=== PATIENT | male | born 1935 | race Caucasian/White ===

== ENCOUNTER 2017-05-09 10:00 | Inpatient (IN) | payer MEDICARE, OTHER ==
[~2017-05-09 10:00] MED LIST: ACETAMINOPHEN 1,000 MG/100 ML BTL IV ONE; CELECOXIB 100 MG CAPSULE PO ONE; FAMOTIDINE 20MG TABLET PO ONE; MECLIZINE 25 MG TABLET PO ONE; METOCLOPRAMIDE 10 MG TABLET PO ONE; VANCOMYCIN HCL 1,000 MG in 0.9 % SODIUM CHLORIDE 250ML 250 ML IVPB ONE
[2017-05-30] MEDS ORDERED: VANCOMYCIN HCL 1,000 MG in DEXTROSE 5 % IN WATER 250 ML IVPB ONE ×2 (06:00)
[2017-05-30] MEDS ORDERED: METOCLOPRAMIDE 10 MG TABLET PO ONE (06:00)
[2017-05-30] MEDS ORDERED: MECLIZINE 25 MG TABLET PO ONE (06:00)
[2017-05-30] MEDS ORDERED: FAMOTIDINE 20MG TABLET PO ONE (06:00)
[2017-05-30] MEDS ORDERED: ACETAMINOPHEN 1,000 MG/100 ML BTL IV ONE (06:00)
[2017-05-30] MEDS ORDERED: CELECOXIB 100 MG CAPSULE PO ONE (06:00)
[2017-05-30 08:43] LABS: ABO GROUP A; ANTIBODY SCREEN NEGATIVE (NEGATIVE); RH TYPE POSITIVE
[2017-05-30] MEDS ORDERED: BISACODYL 10 MG SUPP RC PRN (10:17)
[2017-05-30] MEDS ORDERED: ONDANSETRON HCL IV 4 MG/2 ML VIAL IVP PRN (10:17)
[2017-05-30] MEDS ORDERED: AL HYDROX/MAG HYDROX 30ML UD PO PRN (10:17)
[2017-05-30] MEDS ORDERED: HYDROMORPHONE HCL 1 MG/ML SYRINGE IM PRN (10:17)
[2017-05-30] MEDS ORDERED: HYDROMORPHONE HCL 2 MG/ML VIAL IM PRN (10:17)
[2017-05-30] MEDS ORDERED: HYDROCODONE/APAP 7.5/325MG TABLET PO PRN ×2 (10:17)
[2017-05-30] MEDS ORDERED: KETOROLAC 30 MG/ML VIAL IVP PRN ×2 (10:17)
[2017-05-30] MEDS ORDERED: DIPHENHYDRAMINE HCL 25 MG CAPSULE PO PRN (10:17)
[2017-05-30] MEDS ORDERED: TRAMADOL HCL 50 MG TABLET PO PRN (10:17)
[2017-05-30] MEDS ORDERED: HYDROCODONE/APAP 5/325MG TABLET PO PRN (10:17)
[2017-05-30] MEDS ORDERED: ZOLPIDEM TARTRATE 5 MG TABLET PO PRN (10:17)
[2017-05-30] MEDS ORDERED: MAGNESIUM HYDROXIDE 30 ML UDC PO PRN (10:17)
[2017-05-30] MEDS ORDERED: ACETAMINOPHEN W/ CODEINE 300MG/60MG TABLET PO PRN ×2 (10:17)
[2017-05-30] MEDS ORDERED: METOCLOPRAMIDE HCL 10 MG/2 ML VIAL IVP PRN (10:17)
[2017-05-30] MEDS ORDERED: MORPHINE SULFATE 5 MG/ML PFS IVP PRN ×4 (10:17)
[2017-05-30] MEDS ORDERED: ACETAMINOPHEN 325 MG TAB PO PRN (10:17)
[2017-05-30] MEDS ORDERED: PROMETHAZINE HCL 12.5 MG in 0.9 % SODIUM CHLORIDE 100ML 50 ML IVPB PRN (10:17)
[2017-05-30] MEDS ORDERED: NALOXONE 0.4 MG/1 ML VIAL IVP PRN (10:17)
[2017-05-30] MEDS ORDERED: ACETAMINOPHEN W/ CODEINE 300MG/30MG TABLET PO PRN ×2 (10:17)
[2017-05-30] MEDS ORDERED: DEXTROSE 5 % AND 0.9 % NACL 1,000 ML IV PRN (13:30)
[2017-05-30] MEDS ORDERED: VANCOMYCIN HCL 1 GM VIAL IVPB ONE (14:39)
[2017-05-30] MEDS ORDERED: BUPIVACAINE 0.75% W/EPI MPF 30ML VIAL IVP ONE (14:39)
[2017-05-30] MEDS ORDERED: TRANEXAMIC ACID 1,000 MG/10 ML ML IV ONE (14:39)
--- NOTE | 2017-05-30 15:39 | Rehab Evaluation ---
Patient Information - Patient Information Diagnosis: Left Knee Arthrosis Ordered Treatment: PT Evaluate and Treat Status: Initial Evaluation Surgery: Yes (L TKA) Date of Surgery: 05/30/17 History: Detail (Pt. reports hitsory of knee pain and difficulty ambulating secondary to arthritis.) Past Med/Fabi Hx Detail: Detail (Pt. reports no related orthopedic surgeries.) Past Medical/Surgical Hx: PAST MEDICAL/SURGICAL HISTORY Past Surgical History appy tonsils left shoulder sx left knee scope c scopes PMH - Respiratory Hx Respiratory Disorders No Comment: sinus drainage PMH - Cardiovascular Hx Cardiovascular Disorders Yes Hx Hypertension Yes Hx Hypotension Yes: orthostatic Hx Irregular Heartbeat Yes: bradycardia from beta blockers resolved now Exercise Tolerance Good Comment: hyperlipidemia PMH - Neuro Hx Neurological Disorders Yes Hx Dizziness Yes: with position changes PMH - GI Hx Gastrointestinal Disorders Yes Hx Gastroesophageal Reflux Yes: not a problem anymore PMH - Hx Genitourinary Disorders No PMH - Endocrine Hx Endocrine Disorders Yes Hx Diabetes Yes: dx'd 5 - 6 yrs ago Hx of NIDDM Yes Comment: A1C 6.0 FBS under 100 PMH - Musculoskeletal Hx Musculoskeletal Disorders Yes Hx Arthritis Yes Hx Back Injury Yes: years ago PMH - Psych Hx Psychiatric Problems No PMH - Hematology/Oncology Hx Hematology/Oncology Yes Disorders Hx Bruising Yes: bruises easily Hx Cancer Yes: skin maybe Premorbid Status: Detail (Slowly progressive worsening of sx.) Social History: Detail ([place] with elevator leading to his floor. Pt. has a front wheeled walker and single point cane. Pt. has a shower bench and rail to grab. Pt. has a raised toilet seat. Pt. is to have [facility] rehab and transition to OP PT.) Precautions: [place], Fall - Time With Patient Total Time Spent With Patient (Min): 30 Treatment Procedures: Detail (Physical Therapy Initial Evaluation Completed. Pt. was left supine with call light available, cryo L knee, and nursing was notified of pt.'s status.) Subjective Information - Subjective Information Per Patient (Pt. verbalized 0/10 pain reports and that he had minimal numbness at his feet, however, he was intact regarding proprioceptive awareness, kinesthetic awareness, and could differentiate all toes palpated with eyes closed. Pt. denied nausea, SOB, and dizziness.) Objective Data - Pain Pain Present: No - Mental Status Patient Orientation: Oriented x3 - Visual Perception Appears within normal limits for therapeutic activities - ROM Within normal limits (WFL all planes of movement for BUE, RLE, and knee flexion was actively taken to ~45 degrees.) - Strength/Tone Within normal limits (5/5 gross break testing BLE.) - Coordination Appears within normal limits for therapeutic activities - Bed Mobility Independent - Transfers Independent - Balance Balance Sitting: Good (Pt. maintained midline positioning for 3 minutes while seated.) Balance Standing: Good (Pt. maintained midline positioning while standing for 3 minutes.) - Sensation Intact - Gait Detail (Not assessed due to pt.'s reports of not having full sensation at his LEs.) - ADL's/IADL's Detail (Pt. was not assessed for ADLs.) - Special Tests Yes (Negative Homans B) Therapy Assessment - Therapy Assessment Detail (Pt. was independent with bed mobility and transfers, he verbalized understanding of precations, demonstrated good understanding of exercises, and had no complaints of pain or discomfort throughout session. Pt. did verbalize not having full sensation at his BLEs and was not assessed for gait due to his verbal reports. He will be appropriate for D/C from inpatient PT once assessed for gait.) Patient Education - Patient Education Teaching Topic: Disease Process, Precautions, Risk Factors Response: Return Demonstration Teaching Method: Discussion, Demonstration Teaching Recipient: Patient Barriers To Learning: None Problem List - Problem List Physical Therapy Problem List: Detail (1) Inability to be assessed for gait.) Goals - Goals Physical Therapy Goals: 1) Pt. will be independent with ambulation over household distances with or without AD. 2) Pt. will verbalize understanding of walker use with gait and avoid twisting his LE when turning. Prognosis - Prognosis Good (Pt. is expected to complete gait assessment and transition to home environment.) Plan - Plan Physical Therapy Plan: Pt. will be seen 1-2x per day for inpatient PT to assess ambulation and use of AD.
--- NOTE | 2017-05-30 15:44 | Rehab Evaluation ---
Patient Information - Patient Information Diagnosis: L total knee arthroplasty Ordered Treatment: OT Evaluate and Treat Status: Initial Evaluation Surgery: Yes Date of Surgery: 05/30/17 Past Medical/Surgical Hx: PAST MEDICAL/SURGICAL HISTORY Past Surgical History appy tonsils left shoulder sx left knee scope c scopes PMH - Respiratory Hx Respiratory Disorders No Comment: sinus drainage PMH - Cardiovascular Hx Cardiovascular Disorders Yes Hx Hypertension Yes Hx Hypotension Yes: orthostatic Hx Irregular Heartbeat Yes: bradycardia from beta blockers resolved now Exercise Tolerance Good Comment: hyperlipidemia PMH - Neuro Hx Neurological Disorders Yes Hx Dizziness Yes: with position changes PMH - GI Hx Gastrointestinal Disorders Yes Hx Gastroesophageal Reflux Yes: not a problem anymore PMH - Hx Genitourinary Disorders No PMH - Endocrine Hx Endocrine Disorders Yes Hx Diabetes Yes: dx'd 5 - 6 yrs ago Hx of NIDDM Yes Comment: A1C 6.0 FBS under 100 PMH - Musculoskeletal Hx Musculoskeletal Disorders Yes Hx Arthritis Yes Hx Back Injury Yes: years ago PMH - Psych Hx Psychiatric Problems No PMH - Hematology/Oncology Hx Hematology/Oncology Yes Disorders Hx Bruising Yes: bruises easily Hx Cancer Yes: skin maybe Premorbid Status: Detail (Pt. was independent with all self-care skills, basic meal prep, and light housework. Pt. has caregiver assistance available if needed , as well as meals. Pt. has hx of L shd orthopedic sx approx. 2 years ago with minor residual pain during some movements, but pt. reports it does not effect level of function.) Social History: Detail (Pt. lives in an [facility]. apartment at [facility]. His apt. is on the 3rd floor, with elevator access. His bathroom is equipped with a raised toilet seat, walk-in shower (4" threshold), built in shower seat, and grab bars. Caregiver assistance is available 24/ if needed, as well as meals. Pt's apartment also has emergency pull cords. Pt. has a first mate tool and 2WW.) Precautions: [place], Fall, Other (WBAT LLE) - Time With Patient Total Time Spent With Patient (Min): 35 Treatment Procedures: Detail (Pt. was left supine in bed with call light and bedside tray within reach. Please see ADL section for tx details.) Subjective Information - Subjective Information Per Patient Objective Data - Pain Pain Present: No (Pt stated no pain and no nausea) - Mental Status Patient Orientation: Oriented x3 - Visual Perception Appears within normal limits for therapeutic activities - ROM Within normal limits (BUE) - Strength/Tone Within normal limits (BUE 4+/5 MMT) - Coordination Appears within normal limits for therapeutic activities - Bed Mobility Independent - Transfers Needs Assist (CGA sit<>stand from EOB to 2WW d/t still experiencing BLE numbness and weakness.) - Balance Balance Sitting: Good Balance Standing: Fair - Sensation Deficit (Pt. reports BLE numbness ankles to knees, but able to feel 2 pt discrimination on toes and feet. BUE lt touch intact fingertips. Pt. reports occasional numbness in UE if in 1 position too long.) - ADL's/IADL's Detail (ADL's and functional mobility not assessed at this time d/t post surgical BLE numbness. Educ. was provided on use of a first mate and adaptive dressing techniques. Pt. verbalized understanding. Pt. has some concerns about donning compression stockings, but stated he can ask the caregiver aides for assistance if needed.) Therapy Assessment - Therapy Assessment Detail (In-pt. OT services not recommended at this time. Pt. has a well- equipped home environment, and 30/12 caregiver assistance available if needed. Pt. was mobile and verbalized understanding of dressing techniques and use of first mate.) Patient Education - Patient Education Teaching Topic: Equipment Use Response: Verbalize Understanding Teaching Method: Discussion Teaching Recipient: Patient Barriers To Learning: None Prognosis - Prognosis Good Plan - Plan Occupational Therapy Plan: D/C from in pt. OT services at this time. Educ. was provided to call if Q's arise when pt. arrives home.
[2017-05-30] MEDS ORDERED: PHENYLEPHRINE HCL 10 MG/ML VIAL IVP ONE (15:51)
[2017-05-30] MEDS ORDERED: HYDROMORPHONE HCL 2 MG/ML VIAL IV ONE (15:51)
[2017-05-30] MEDS ORDERED: FENTANYL PF 100MCG/2ML VIAL IV ONE (15:51)
[2017-05-30] MEDS ORDERED: MIDAZOLAM HCL 2MG/2ML VIAL IV ONE (15:51)
[2017-05-30] MEDS: HYDROCODONE/APAP 5/325MG TABLET PO PRN (19:02)
[2017-05-30] MEDS: VANCOMYCIN HCL 1,000 MG in DEXTROSE 5 % IN WATER 250 ML IVPB SCH ×2 (21:10)
[2017-05-30] MEDS ORDERED: METFORMIN 500 MG TABLET PO SCH (22:00)
[2017-05-30] MEDS ORDERED: ATORVASTATIN 20 MG TABLET PO SCH (22:00)
[2017-05-30] MEDS ORDERED: GEMFIBROZIL 600 MG TABLET PO SCH (22:00)
[2017-05-30] MEDS: FERROUS SULFATE 325 MG TAB PO SCH (22:51)
[2017-05-30] MEDS: DOCUSATE SODIUM 100 MG CAPSULE PO SCH (22:51)
[2017-05-31] MEDS: HYDROCODONE/APAP 5/325MG TABLET PO PRN (00:35)
[2017-05-31] MEDS: TRAMADOL HCL 50 MG TABLET PO PRN ×2 (02:19→07:02)
[2017-05-31 06:36] LABS: HEMATOCRIT 34.1 % (42.0-52.0)
--- NOTE | 2017-05-31 07:54 | Operative Note ---
DATE OF SURGERY: 05/30/2017. PREOPERATIVE DIAGNOSIS: Left knee arthrosis. POSTOPERATIVE DIAGNOSIS: Left knee arthrosis. OPERATION: Left total knee arthroplasty. SURGEON: Rafael Grey M.D. ANESTHESIA: Spinal, Glenny Romo CRNA. COMPLICATIONS: None. ESTIMATED BLOOD LOSS: Minimal. TOURNIQUET TIME: 60 minutes. OPERATIVE FINDINGS: [id number] medial compartment arthrosis. COMPONENTS PLACED: A total of 2.0 gm vancomycin cement, Sw[employer] Journey II total knee arthroplasty system, size 7 cobalt chrome femoral component, a size 8 tibial baseplate, a 9.0 mm thick tibial poly insert, 35 mm cemented patellar component, and 2.0 gm of vancomycin and cement. INDICATIONS: This is an 82-year-old male who has had persistent pain and dysfunction in his knee for several years. He has failed nonoperative treatment. X-rays revealed [id number] medial compartment arthrosis, and he was scheduled for the procedure above. I explained to him all risks and benefits of surgery in detail for the diagnosis and procedures including but not limited to infection, nerve injury, vessel injury, persistent pain, stiffness, numbness and tingling in his knee, periprosthetic fracture, need for resection arthroplasty should the components become infected or loosened, blood clot and the need for anticoagulation to prevent blood clots, and the risks associated with medications. All of his questions were answered. The course was outlined and he agreed to proceed. PROCEDURE: The patient brought to the operating room. He was placed in the supine position and was prepared for surgery. Spinal anesthesia was induced. His left lower extremity was prepped and draped in sterile fashion. The left knee was prepped again with ChloraPrep and draped. Intraoperative time out was performed. Next, the knee was injected with 0.5% Marcaine with epinephrine. The leg was exsanguinated with Esmarch and the knee was flexed. The tourniquet was inflated to 250 mm Hg pressure. Next, the skin and subcutaneous tissues were dissected down. Incised the capsule medially around the medial border of the patella to the tibial tubercle. Incised the vastus medialis in line with its fibers in a mid vastus approach. I everted the patella and partially resected the retropatellar fat. Elevated the capsule subperiosteally and medially. He had [id number] medial compartment arthrosis. Next I drilled an intracondylar drill hole and inserted intramedullary guide becka. I used the 60- degree cutting block to line up the distal femoral condyle and pinned it in place in the +2.0 mm position. Next I cut the distal femoral condyle. I next inserted the sizing jig on the distal femoral condyle and sized it to be right on size 7. Through the previously-placed pin holes I placed the 5 in 1 cutting jig. We dialed in the anterior cut so it would come out flush without notching. We cut that and it was a good flush cut. We then cut the remaining chamfer cuts in the usual fashion. Next I placed a size 7 trial femoral component, and it was seated nicely. As soon as it was flush, I centered it and pinned it. I inserted the femoral resection collet. I reamed out with a box osteotome the cruciate bone block. Next, attention was turned to the tibia. Placed the extra-alignment jig in the tibia, seated the spikes in the intertubercular groove two fingerbreadths distally off the anterior tibial cortex. Referenced for a 7.0 mm cut off the higher lateral plateau. We pinned the cutting jig provisionally in place with two anterior-posterior pins. We then rechecked alignment of the cutting jig using a drop becka, centering it on the tibial anatomic access. We then cross pinned it to complete its fixation and then cut the tibia. Next, we removed osteophytes off the posterior femoral condyles and checked the flexion and extension gaps. There were symmetric flexion and extension gaps with the 9.0 mm tibial poly insert. Overall alignment in flexion and extension was anatomic valgus orientation with alignment rods sitting on the hip joint and ankle joint. Next we took the knee in flexion and sized the tibial baseplate to be size 8. We seated the tibial base plate in rotation and extension using the alignment becka sitting on the hip joint and ankle joint. Marked electrocautery sims on the tibial cortex off the laser sims of the tibial baseplate. Next I measured the patella and it was 29 mm. I set the cutting jig at 20 mm to allow for a 9.0 mm thick poly insert. Cut the patella and chamfered off the lateral patellar facet. I medialized as much as possible, and sized it to a 35. I drilled three peg holes. Next, I placed the trial patella component, and it fit nicely. I then remeasured the patella width, and it was right on 20. Next I checked the knee range of motion. The patella tracked nicely hands free. Again there were symmetric flexion and extension gaps. Next I mixed cement. I took the knee to flexion. I seated the tibial baseplate off the previously placed electrocautery sims. I pinned it in place and drilled out and keel punched the keel hole. I placed a bone plug in the femoral canal hole. I placed the drill bit in the tibia hole and exposed the proximal tibia. I irrigated copiously all bony surfaces. I precoated both surfaces and then impacted down down the tibial component and then the femoral component. I placed the trial poly liner then clamped down the patellar component. I held the knee in extension until the cement hardened. I then removed the excess cement. Once the cement hardened, I distracted the knee with a bone hook and sponge. We injected the knee capsule peripherally deep and superficial with 0.5% Marcaine with epinephrine, 2.0 gm tranexamic acid, and Exparel mixture, deep capsule medial and lateral periosteum and vastus medialis subcutaneous. Next, we impacted down the real tibial poly insert and verified it was interlocked medially and laterally. I found our range of motion was still the same. We then irrigated and closed the vastus and capsule with running #2 Quill. I irrigated again and closed the skin deep with 2-0 Vicryl. The skin edges were approximated with a zip line, and a sterile dressing was applied. The patient tolerated the procedure well. No intraoperative complications. Sponge, needle, and blade counts correct. Recovery room stable, neurovascularly intact. He will be discharged to the floor and will be discharged home tomorrow. cc: Kavon Collins M.D. JOB NUMBER: [id number] MTDD
[2017-05-31] MEDS: VANCOMYCIN HCL 1,000 MG in DEXTROSE 5 % IN WATER 250 ML IVPB SCH ×2 (08:04)
[2017-05-31] MEDS: DOCUSATE SODIUM 100 MG CAPSULE PO SCH (09:26)
[2017-05-31] MEDS: FERROUS SULFATE 325 MG TAB PO SCH (09:26)
[2017-05-31] MEDS ORDERED: LISINOPRIL 10 MG TABLET PO SCH (10:00)
[2017-05-31] MEDS ORDERED: RIVAROXABAN 10 MG TABLET PO SCH (10:00)
[2017-05-31] MEDS ORDERED: CELECOXIB 100 MG CAPSULE PO SCH (10:00)
--- NOTE | 2017-05-31 10:54 | Physical Therapy Tx Note ---
Physical Therapy Tx Note - Treatment Note Tolerated: Good (Patient feeling quite good this am, had a decent night's sleep. Definitely wants to go home today. Patient able to move from supine to sit independently after removal of cryocuff and compressive pads on legs. Patient able to move sit to stand independently then used walker to ambulate 100 feet in bettencourt, ambulate down three steps with folded walker and rail safely and with proper technique then pivoted around and walked back up three steps with same use of rail and folded walker. Able to tolerate some exercises but knee quite painful yet with any flexion.) Physical Therapy Tx Note: Detail (As noted above, patient ambulated in bettencourt about 100 feet. Able to negotiate steps easily with rail and FWW. WBAT is quite good and about 50% or so. Performed exercises seated and supine for knee: quad, glut and ham sets, heel slides and SLR, ankle pumps and reminded to continue today as able to tolerate until sees home therapist.) Physical Therapy Problem List: Detail (1) Inability to be assessed for gait day of surgery. Day after surgery, able to ambulate normally with FWW and WBAT.) Physical Therapy Goals: 1) Pt. will be independent with ambulation over household distances with or without AD. 2) Pt. will verbalize understanding of walker use with gait and avoid twisting his LE when turning. Prognosis: Good (Patient is able to ambulate fairly normally and household distances now, negoitiate stairs with proper assist of walker and rail and able to perform exercises normally. Bed mobility independent. Patient is ready for discharge from PT as has passed all skills necessary for discharge.) Physical Therapy Plan: Pt. will be seen 1-2x per day for inpatient PT to assess ambulation and use of AD.
== END 2017-05-31 13:55 | disposition home health service (06) | DRG 470 ==
LOC: UNDOADMIN 05-30 07:07 → MEDSURG 05-30 07:07
PROVIDERS: ADMIT Orthopaedic Surgery; ATTEND Orthopaedic Surgery
PROC: 0SRD069 Replacement of Left Knee Joint with Oxidized Zirconium on Polyethylene Synthetic Substitute, Cemented, Open Approach (ICD-10-PCS; principal; 2017-05-30 10:00)
DX: M17.12 Unilateral primary osteoarthritis, left knee (principal); E78.00 Pure hypercholesterolemia, unspecified; I10 Essential (primary) hypertension; E11.9 Type 2 diabetes mellitus without complications; Z79.84 Long term (current) use of oral hypoglycemic drugs
CPT/HCPCS: 36416; 82948; 85014; 85018; 86850; 86900; 86901; 94761; 97110; 97116; 97165; J1885; J2370; J3490; J7042; J7060

== ENCOUNTER 2018-06-22 05:42 | Day surgery (SDC) | payer MEDICARE, OTHER ==
[2018-06-22] MEDS ORDERED: VANCOMYCIN HCL 1 GM VIAL IVPB ONE (05:43)
[2018-06-22] MEDS ORDERED: BUPIVACAINE 0.5% W/EPI MPF 30 ML VIAL IVP ONE (05:43)
[2018-06-22] MEDS ORDERED: MIDAZOLAM HCL 2MG/2ML VIAL IV ONE (05:43)
[2018-06-22] MEDS ORDERED: LIDOCAINE 2% MDV (20MG/ML) 20ML VIAL IV ONE (05:43)
[2018-06-22] MEDS ORDERED: DEXAMETHASONE 4 MG/ML 1ML VIAL IVP ONE (05:43)
[2018-06-22] MEDS ORDERED: BUPIVACAINE LIPOSOME 266MG/20ML VIAL IV ONE (05:43)
[2018-06-22] MEDS ORDERED: TRANEXAMIC ACID 1,000 MG/10 ML ML IV ONE ×2 (05:43→10:36)
[2018-06-22] MEDS ORDERED: FENTANYL CITRATE/PF 50 MCG/ML VIAL IJ ONE (05:43)
[2018-06-22] MEDS ORDERED: ROPIVACAINE HCL (NAROPIN) /PF 5MG/ML 20ML VIAL IV ONE (05:43)
[2018-06-22] MEDS ORDERED: PROPOFOL 10 MG/ML VIAL IV ONE (05:43)
[2018-06-22] MEDS ORDERED: ACETAMINOPHEN 1,000 MG/100 ML BTL IV ONE (06:00)
[2018-06-22] MEDS ORDERED: CELECOXIB 100 MG CAPSULE PO ONE (06:00)
[2018-06-22] MEDS ORDERED: VANCOMYCIN HCL 1,000 MG in DEXTROSE 5 % IN WATER 250 ML IVPB ONE ×2 (06:00)
[2018-06-22] MEDS ORDERED: METOCLOPRAMIDE 10 MG TABLET PO ONE (06:00)
[2018-06-22] MEDS ORDERED: CEFAZOLIN 2 Gram 2 GM/50 ML BAG IVPB ONE (06:00)
[2018-06-22] MEDS ORDERED: FAMOTIDINE 20MG TABLET PO ONE (06:00)
[2018-06-22] MEDS ORDERED: MECLIZINE 25 MG TABLET PO ONE (06:00)
[2018-06-22] MEDS ORDERED: PROMETHAZINE HCL 12.5 MG in 0.9 % SODIUM CHLORIDE 100ML 50 ML IVPB PRN (08:23)
[2018-06-22] MEDS ORDERED: METOCLOPRAMIDE HCL 10 MG/2 ML VIAL IVP PRN (08:23)
[2018-06-22] MEDS ORDERED: ACETAMINOPHEN W/ CODEINE 300MG/30MG TABLET PO PRN ×2 (08:23)
[2018-06-22] MEDS ORDERED: HYDROMORPHONE HCL 2 MG/ML VIAL IM PRN ×2 (08:23)
[2018-06-22] MEDS ORDERED: ACETAMINOPHEN W/ CODEINE 300MG/60MG TABLET PO PRN ×2 (08:23)
[2018-06-22] MEDS ORDERED: MAGNESIUM HYDROXIDE 30 ML UDC PO PRN (08:23)
[2018-06-22] MEDS ORDERED: ONDANSETRON HCL IV 4 MG/2 ML VIAL IVP PRN (08:23)
[2018-06-22] MEDS ORDERED: DIPHENHYDRAMINE HCL 25 MG CAPSULE PO PRN (08:23)
[2018-06-22] MEDS ORDERED: ACETAMINOPHEN 325 MG TAB PO PRN (08:23)
[2018-06-22] MEDS ORDERED: TRAMADOL HCL 50 MG TABLET PO PRN ×2 (08:23)
[2018-06-22] MEDS ORDERED: NALOXONE 0.4 MG/1 ML VIAL IVP PRN (08:23)
[2018-06-22] MEDS ORDERED: BISACODYL 10 MG SUPP RC PRN (08:23)
[2018-06-22] MEDS ORDERED: AL HYDROX/MAG HYDROX 30ML UD PO PRN (08:23)
[2018-06-22] MEDS ORDERED: KETOROLAC 30 MG/ML VIAL IVP PRN ×2 (08:23)
[2018-06-22] MEDS ORDERED: ZOLPIDEM TARTRATE 5 MG TABLET PO PRN (08:23)
[2018-06-22] MEDS ORDERED: HYDROCODONE/APAP 5/325MG TABLET PO PRN ×2 (08:23)
[2018-06-22] MEDS ORDERED: HYDROCODONE/APAP 7.5/325MG TABLET PO PRN (08:23)
[2018-06-22] MEDS: HYDROCODONE/APAP 7.5/325MG TABLET PO PRN ×2 (11:13→22:20)
--- NOTE | 2018-06-22 13:40 | Rehab Evaluation ---
Patient Information - Patient Information Diagnosis: R knee OA Ordered Treatment: PT Evaluate and Treat Status: Initial Evaluation Surgery: Yes (TKA R) Date of Surgery: 06/22/18 Past Medical/Surgical Hx: PAST MEDICAL/SURGICAL HISTORY Past Surgical History appy tonsils left shoulder sx left knee scope c scopes; left total knee replacement 05/2017 PMH - Respiratory Hx Respiratory Disorders Yes Hx Asthma No Hx Bronchitis No Hx Chronic Obstructive Yes: cxr suggested copd Pulmonary Disease (COPD) Hx Dyspnea No Hx Pneumonia No Hx Pulmonary Embolism No Hx Sleep Apnea No Hx Tuberculosis No Hx of CPAP No Comment: sinus drainage PMH - Cardiovascular Hx Cardiovascular Disorders Yes Hx Abnormal EKG No Hx Cardiac Catheterization No Hx Chest Pain Yes: 3 weeks ago-awoke with chest pain & sweats - went to [facility]-"not heart related' Hx Congestive Heart Failure No Hx Deep Vein Thrombosis No Hx Edema No Hx Heart Attack No Hx Hypertension Yes Hx Hypotension Yes: orthostatic Hx Irregular Heartbeat Yes: bradycardia from beta blockers resolved now Hx Palpitations No Hx Pacemaker/Defibrillator No Hx Vascular Disease Yes: "MY FEET GET COLD" Exercise Tolerance Good Hx Transient Ischemic Attacks No (TIA) Comment: hyperlipidemia PMH - Neuro Hx Neurological Disorders Yes Hx Brain Tumor No Hx Cerebrovascular Accident No Hx Dementia No Hx Dizziness Yes: with position changes Hx Headaches No Hx Neuropathy No Hx Parkinson's Disease No Hx Seizures No Hx Speech Problem No Hx Syncope No Hx Transient Ischemic Attacks No (TIA) PMH - GI Hx Gastrointestinal Disorders Yes Hx Abdominal Pain No Hx Celiac Disease No Hx Crohn's Disease No Hx Diverticulitis No Hx Gastrointestinal Bleed No Hx Gastroesophageal Reflux Yes: ON PRILOSEC Hx Hepatitis/Jaundice No Hx Hiatal Hernia No Hx Irritable Bowel No Hx Liver Disease No Hx Nausea/Vomiting No Hx Obstructive Bowel No Hx Pancreatitis No Hx Rectal Bleeding No Hx Ulcer No Hx Weight Loss/Weight Gain Yes: LOSS FROM 185 TO 165 Comment: WT LOSS FROM DIETING PMH - Hx Genitourinary Disorders No Hx Bladder Problem No Hx Dialysis No Hx Kidney Stones No Hx Prostate Problems No Hx Renal Disease No Hx Urinary Tract Infection No PMH - Endocrine Hx Endocrine Disorders Yes Hx Diabetes Yes: dx'd 5 - 6 yrs ago Hx Thyroid Disease No Hx of NIDDM Yes: NO LONGER ON METFORMIN Comment: A1C 6.0 FBS under 100 PMH - Musculoskeletal Hx Musculoskeletal Disorders Yes Hx Arthritis Yes Hx Back Injury Yes: years ago Hx Fibromyalgia No Hx Gout No Hx Musculoskeletal Disease No Hx Osteoporosis No PMH - Psych Hx Psychiatric Problems No Hx Anxiety No Hx Behavior Problems No Hx Depression No Hx Emotional Abuse No Hx Sexual Abuse No Hx Suicide Attempt No PMH - Hematology/Oncology Hx Hematology/Oncology Yes Disorders Hx Anemia No Hx Blood Disorders No Hx Bruising Yes: bruises easily Hx Cancer Yes: skin maybe Hx Clotting Problems No Hx Sickle Cell Disease No Hx Unexplained Bleeding No Hx Blood Transfusion Reaction No Premorbid Status: Detail (The patient was independent with all mobility prior to surgery.) Social History: Detail (The patient lives in an apartment with an elevator. The patient's bathroom is equipped with a walk in shower with shower bench, grab bars and an elevated toilet with grab bars. The patient has a front wheeled walker and a standard cane.) Precautions: [place], Fall, Other (WBAT on the R LE) - Time With Patient Total Time Spent With Patient (Min): 30 Treatment Procedures: Detail (Initial evaluation) Subjective Information - Subjective Information Per Patient (The patient had complaints of level 3 R knee pain using 0-10 pain scale.) Objective Data - Mental Status Patient Orientation: Oriented x3 - Visual Perception Appears within normal limits for therapeutic activities - ROM Not within normal limits (The patient's R knee AROM was aprox. 85 degrees of flexion , 0 degrees of extension. All other AROM was WNL.) - Strength/Tone Not within normal limits (The patient's R LE strength was not tested secondary to s/p surgery however, was functional. The patient's LE strength generally was 4+ to 5/5.) - Bed Mobility Independent (The patient was independent with supine to and from sit transfer.) - Transfers Needs Assist (The patient was independent with sit to and from stand transfer with verbal cues to push up from and reach back for surface. The patient had one incident of LOB with minimal PA of 1 to correct when going from a standing to sitting position.) - Balance Balance Sitting: Good Balance Standing: Fair (The patient requires support of walker to balance s/p surgery.) - Sensation Intact - Gait Detail (The patient ambulated with front wheeled walker WBAT on the R LE a distance of 108 feet x 1 with assist of one to handle equipment only.) Therapy Assessment - Therapy Assessment Detail (The patient was independent with bed mobility and ambulation. The patient exhibited unsteadiness with supine to sit. The patient was independent with HEP. Will see the patient for one session to moniter safety with transfers. ) Patient Education - Patient Education Teaching Topic: Exercise/Activity (The patient was independent with TKA HEP including: heel slides, ankle pumps, quad sets, gluteal sets, hamstring sets and SLR.) Response: Return Demonstration Teaching Method: Demonstration, Handout Teaching Recipient: Patient Barriers To Learning: Age Related Problem List - Problem List Physical Therapy Problem List: Detail (Decreased R knee AROM and strength as to be expected following surgery.) Goals - Goals Physical Therapy Goals: The patient will acheive safe sit to stand transfer without verbal cues or LOB. Prognosis - Prognosis Good Plan - Plan Physical Therapy Plan: PT for one session to assess safety with transfers.
[2018-06-22] MEDS: VANCOMYCIN HCL 1,000 MG in DEXTROSE 5 % IN WATER 250 ML IVPB SCH ×2 (19:04)
[2018-06-22] MEDS: DEXTROSE 5 % AND 0.9 % NACL 1,000 ML IV PRN (19:05)
[2018-06-22 21:02] LABS: ABO GROUP A; ANTIBODY SCREEN NEGATIVE (NEGATIVE); RH TYPE POSITIVE
--- NOTE | 2018-06-22 21:05 | Operative Note ---
DATE OF SURGERY: 06/22/2018 PREOPERATIVE DIAGNOSES: RIGHT KNEE END-STAGE ARTHROSIS. POSTOPERATIVE DIAGNOSES: RIGHT KNEE END-STAGE ARTHROSIS. PROCEDURE: RIGHT TOTAL KNEE ARTHROPLASTY. SURGEON: ABISAI NORMAN M.D. ANESTHESIA: SPINAL, HOLLY CESPEDES CRNA. COMPLICATIONS: NONE. BLOOD LOSS: MINIMAL. TOURNIQUET TIME: ABOUT 60 MINUTES. OPERATIVE FINDINGS: [id number] medial compartment arthrosis. COMPONENTS PLACED: 2 gm Vancomycin, cement, [employer] Journey II Oxinium size 8 femoral component, size 8 tibial baseplate, an 9 mm thick tibial poly insert, and a 38 mm cemented patellar component. INDICATIONS FOR OPERATION: This is an 83-year-old male status post left knee arthroplasty done by myself and is now scheduled for the right. I explained the risks and benefits thoroughly in detail for diagnosis and procedures including but not limited to infection, nerve injury, vessel injury, persistent pain, stiffness, numbness and tingling in his knee, periprosthetic fracture, need for resection arthroplasty should the components become infected or loosened, blood clot, need for further procedures, anticoagulation to prevent blood clots and the risks associated with these medications and all of his questions were answered. The rehab and course were outlined and he agreed to proceed. PROCEDURE: The patient was brought to the O.R. and placed in the supine position for surgery. Spinal anesthesia induced and his right lower extremity and knee were prepped and draped in sterile fashion. The right knee was prepped again with ChloraPrep after it was draped. Intraoperative time-out was performed. Next, the leg was exsanguinated with an Esmarch. It was infiltrated with 0.5% Marcaine with Epinephrin. The skin and subcutaneous tissues were dissected down. I incised the capsule medially around the medial border of the patella to the tibial tubercle. I incised the vastus medialis in line with its fibers in a mid vastus approach. Partially resected the retropatellar fat pad, elevated the capsule subperiosteally medially and flexed the knee and retracted the patella laterally with curved Hohmann retractors and exposed the large distal femoral condyle. The medial femoral condyle was completely eroded of any cartilage. I drilled the intracondylar drill hole and inserted the intramedullary guide becka and 6-degree cutting block and aligned it off the distal femoral condyles and pinned in the zero position. We then moved it up to the +2 mm position, cross-pinned it and completely its fixation and cut the distal femur. Next we placed the sizing jig on the distal femur and sized the sizing jig to be right on size 8. Through the previously placed pin holes, we placed the 5-in- 1 cutting jig. We dialed in the anterior cut so it would come out flush without notching. We cut the anterior cut. It was a good cut. We then pinned it and cut the remaining chamfer cuts in the usual fashion. We placed the size 8 femoral component, centered it, pinned it, and removed osteophytes off the edges of the components. We inserted the resection collet and reamed out and box-osteotomed out the cruciate bone block. Attention was turned to the tibia now. We seated the external alignment jig with the spikes in the intertubercular groove two fingerbreadths distally and referenced for a 7 mm cut off the higher lateral plateau and then pinned that provisionally with two anterior and posterior pins. We then cut the tibia. Next, we removed osteophytes from the posterior femoral condyles, checked flexion and extension gaps. He basically had symmetric flexion and extension gaps with a 9 mm thick block insert. This allowed for 2 to 3 mm of varus/valgus laxity in flexion and extension. Overall alignment of cuts in extension with anatomic valgus orientation with the alignment becka centered on the hip joint and ankle joint. We took the knee in flexion, sized the tibial baseplate to be a size 8, replaced all trial components. Again, we set the rotation of the tibial baseplate in extension using the alignment becka centered on the hip joint and ankle joint and marked electrocautery sims on the tibial cortex off the laser sims on the tibial baseplate. Attention was turned to the patella. It was a very large patella. It measured to be 28 mm. We set the cutting jig at 19 mm to allow for a 9 mm thick insert. We cut the patella and remeasured. It was right on 19. We chamfered off the lateral patellar facet, sized it to be 38. We drilled three peg holes and placed the trial patellar component and did a trial range of motion and stability check and mixed cement. Again, we had symmetric flexion and extension gaps. Full extension and flexion to 150 degrees. Next, we took the knee in flexion and exposed the proximal tibia. We seated the tibial baseplate off the previously placed electrocautery sims, pinned it, and then drilled out and keel-punched the keel hole. Next, we placed a bone plug in the femoral canal hole. We placed the drill bit in the keel hole and irrigated copiously all bony surfaces with pulsatile lavage antibiotic solution. We changed gloves and brought in a clean sheet. We pre-coated both surfaces and impacted down the tibial component first and then the femoral component and clamped down the patella component and placed the trial tibial poly liner. We held the knee in extension until the cement hardened. Once the cement hardened, we took the knee back into flexion. We distracted the knee with bone hook and sponge, removed any excess cement off the edges of the components. We irrigated copiously and then we injected our pain-relieving mixture of 0.5% Marcaine with Epinephrine, 2 gm tranexamic acid, and Exparel mixture deep to superficial through the mediolateral capsule, mediolateral periosteum and working out superficially to the subcutaneous regions. Next, we inserted the real tibial poly insert and verified it was interlocked. Final range of motion revealed the same. Next, we closed the knee in slight flexion using a running #2 Quill suture in the capsule and vastus split. We irrigated again. We closed the skin deep with #2-0 Vicryl. Sterile dressing applied and CARLOS wrap. It will be changed to a PETE dressing prior to discharge tomorrow. cc: Dr. Kavon Collins JOB NUMBER: [id number] [employer] [facility]
[2018-06-22] MEDS ORDERED: ATORVASTATIN 20 MG TABLET PO SCH (22:00)
[2018-06-22] MEDS ORDERED: GEMFIBROZIL 600 MG TABLET PO SCH (22:00)
[2018-06-22] MEDS ORDERED: SYSTANE EYE OPTH SCH (22:00)
[2018-06-22] MEDS: DOCUSATE SODIUM 100 MG CAPSULE PO SCH (22:19)
[2018-06-22] MEDS: FERROUS SULFATE 325 MG TAB PO SCH (22:19)
[2018-06-23] MEDS: HYDROCODONE/APAP 7.5/325MG TABLET PO PRN ×2 (06:50→13:39)
[2018-06-23] MEDS: VANCOMYCIN HCL 1,000 MG in DEXTROSE 5 % IN WATER 250 ML IVPB SCH ×2 (06:52)
[2018-06-23 06:56] LABS: HEMATOCRIT 34.6 % (42.0-52.0)
[2018-06-23] MEDS ORDERED: PANTOPRAZOLE SODIUM 40 MG TABLET PO SCH (07:00)
[2018-06-23] MEDS: DEXTROSE 5 % AND 0.9 % NACL 1,000 ML IV PRN (08:31)
--- NOTE | 2018-06-23 08:35 | Rehab Evaluation ---
Patient Information - Patient Information Diagnosis: R knee OA Ordered Treatment: OT Evaluate and Treat Status: Initial Evaluation Surgery: Yes (TKA R) Date of Surgery: 06/22/18 Past Medical/Surgical Hx: PAST MEDICAL/SURGICAL HISTORY Past Surgical History appy tonsils left shoulder sx left knee scope c scopes; left total knee replacement 05/2017 PMH - Respiratory Hx Respiratory Disorders Yes Hx Asthma No Hx Bronchitis No Hx Chronic Obstructive Yes: cxr suggested copd Pulmonary Disease (COPD) Hx Dyspnea No Hx Pneumonia No Hx Pulmonary Embolism No Hx Sleep Apnea No Hx Tuberculosis No Hx of CPAP No Comment: sinus drainage PMH - Cardiovascular Hx Cardiovascular Disorders Yes Hx Abnormal EKG No Hx Cardiac Catheterization No Hx Chest Pain Yes: 3 weeks ago-awoke with chest pain & sweats - went to [facility]-"not heart related' Hx Congestive Heart Failure No Hx Deep Vein Thrombosis No Hx Edema No Hx Heart Attack No Hx Hypertension Yes Hx Hypotension Yes: orthostatic Hx Irregular Heartbeat Yes: bradycardia from beta blockers resolved now Hx Palpitations No Hx Pacemaker/Defibrillator No Hx Vascular Disease Yes: "MY FEET GET COLD" Exercise Tolerance Good Hx Transient Ischemic Attacks No (TIA) Comment: hyperlipidemia PMH - Neuro Hx Neurological Disorders Yes Hx Brain Tumor No Hx Cerebrovascular Accident No Hx Dementia No Hx Dizziness Yes: with position changes Hx Headaches No Hx Neuropathy No Hx Parkinson's Disease No Hx Seizures No Hx Speech Problem No Hx Syncope No Hx Transient Ischemic Attacks No (TIA) PMH - GI Hx Gastrointestinal Disorders Yes Hx Abdominal Pain No Hx Celiac Disease No Hx Crohn's Disease No Hx Diverticulitis No Hx Gastrointestinal Bleed No Hx Gastroesophageal Reflux Yes: ON PRILOSEC Hx Hepatitis/Jaundice No Hx Hiatal Hernia No Hx Irritable Bowel No Hx Liver Disease No Hx Nausea/Vomiting No Hx Obstructive Bowel No Hx Pancreatitis No Hx Rectal Bleeding No Hx Ulcer No Hx Weight Loss/Weight Gain Yes: LOSS FROM 185 TO 165 Comment: WT LOSS FROM DIETING PMH - Hx Genitourinary Disorders No Hx Bladder Problem No Hx Dialysis No Hx Kidney Stones No Hx Prostate Problems No Hx Renal Disease No Hx Urinary Tract Infection No PMH - Endocrine Hx Endocrine Disorders Yes Hx Diabetes Yes: dx'd 5 - 6 yrs ago Hx Thyroid Disease No Hx of NIDDM Yes: NO LONGER ON METFORMIN Comment: A1C 6.0 FBS under 100 PMH - Musculoskeletal Hx Musculoskeletal Disorders Yes Hx Arthritis Yes Hx Back Injury Yes: years ago Hx Fibromyalgia No Hx Gout No Hx Musculoskeletal Disease No Hx Osteoporosis No PMH - Psych Hx Psychiatric Problems No Hx Anxiety No Hx Behavior Problems No Hx Depression No Hx Emotional Abuse No Hx Sexual Abuse No Hx Suicide Attempt No PMH - Hematology/Oncology Hx Hematology/Oncology Yes Disorders Hx Anemia No Hx Blood Disorders No Hx Bruising Yes: bruises easily Hx Cancer Yes: skin maybe Hx Clotting Problems No Hx Sickle Cell Disease No Hx Unexplained Bleeding No Hx Blood Transfusion Reaction No Premorbid Status: Detail (The patient was independent with all mobility, laundry and some meal prep prior to surgery. He lives in a long term apartment and they provide housecleaning and some laundry services as well as meals.) Social History: Detail (The patient lives in a 3rd floor apartment with an elevator. The patient's bathroom is equipped with a walk in shower with built in shower bench, grab bars and an elevated toilet with grab bars. The patient has a front wheeled walker, four wheeled walker and a standard cane.) Precautions: [place], Fall, Other (WBAT on the R LE) - Time With Patient Total Time Spent With Patient (Min): 35 Treatment Procedures: Detail (OT eval low complexity) Subjective Information - Subjective Information Per Patient Objective Data - Pain Pain Present: Yes (2-08/16) - Mental Status Patient Orientation: Oriented x3 - Visual Perception Appears within normal limits for therapeutic activities - ROM Within normal limits ([place] UE AROM WNL) - Strength/Tone Within normal limits ([place] UE strength WNL) - Coordination Appears within normal limits for therapeutic activities - Bed Mobility Independent (Ind with supine to sit) - Transfers Independent (Ind with sit to stand from EOB and chair heights.) - Balance Balance Sitting: Good Balance Standing: Good - Sensation Intact - Gait Detail (Pt ambulating in hallway and room with 2 wheeled walker Indly.) - ADL's/IADL's Detail (Pt educated and able to demonstrate learning of modified LE dressing techniques including doffing slipper socks and briefs and donning underwear, pants, socks and tennis shoes. Reviewed bathroom and kitchen modifications and safety, pt verbalizes understanding.) Therapy Assessment - Therapy Assessment Detail (Pt is Ind with modified LE dressing techniques.) Problem List - Problem List Physical Therapy Problem List: Detail (Decreased R knee AROM and strength as to be expected following surgery.) Occupational Therapy Problem List: Detail (No current IP OT problems identified. ) Goals - Goals Physical Therapy Goals: The patient will acheive safe sit to stand transfer without verbal cues or LOB. Occupational Therapy Goals: No current IP OT goals identified. Prognosis - Prognosis Good Plan - Plan Physical Therapy Plan: PT for one session to assess safety with transfers. Occupational Therapy Plan: No further OT recommended. Thank you for this referral.
[2018-06-23] MEDS: DOCUSATE SODIUM 100 MG CAPSULE PO SCH (09:25)
[2018-06-23] MEDS: FERROUS SULFATE 325 MG TAB PO SCH (09:25)
--- NOTE | 2018-06-23 09:53 | Physical Therapy Tx Note ---
Physical Therapy Tx Note - Treatment Note Tolerated: Good Total Time Spent With Patient: 15 Physical Therapy Tx Note: Detail (The patient was up in chair when PT arrived. The patient was independent with sit to and from stand transfer with no unsteadiness noted. The patient ambulated independently with front wheeled walker a distance of 108 feet x 1. The a patient ambulated on stairs with use of one railing with proper technique with supervision only for safety. The patient's HEP was again reviewed . The patient has met all inpt. PT goals and is discharged from inpatient PT.) Physical Therapy Problem List: Detail (Decreased R knee AROM and strength as to be expected following surgery.) Physical Therapy Goals: The patient will acheive safe sit to stand transfer without verbal cues or LOB.(Goal Met) Physical Therapy Plan: The patient has met all inpatient PT goals and is discharged from inpatient. PT. The patient is to continue with Home PT.
[2018-06-23] MEDS ORDERED: RIVAROXABAN 10 MG TABLET PO SCH (10:00)
[2018-06-23] MEDS ORDERED: LISINOPRIL 10 MG TABLET PO SCH (10:00)
[2018-06-23] MEDS ORDERED: CELECOXIB 100 MG CAPSULE PO SCH (10:00)
== END 2018-06-23 14:14 | disposition home health service (06) ==
LOC: SUR 05:42 → MEDSURG 11:00 → SUR 06-23 14:14
PROVIDERS: ATTEND Orthopaedic Surgery
DX: M17.11 Unilateral primary osteoarthritis, right knee (principal); I10 Essential (primary) hypertension; E78.00 Pure hypercholesterolemia, unspecified; K21.9 Gastro-esophageal reflux disease without esophagitis
CPT/HCPCS: 27447; 01402; 64447; 85018; 85014; 86900; 86901; 86850; 76942; J3370 ×2; J0690; J3490 ×2; C9290; J3010; J2795; 97530; J7042; J7060